=== PATIENT | male | born 1950 | race Caucasian/White ===

== ENCOUNTER → 2018-03-13 | Outpatient (CLI) | payer MEDICARE | END | disposition home or self-care (01) | LOC: ORTHO 00:58 | DX: M25.562 Pain in left knee (principal) ==

== ENCOUNTER → 2018-06-15 | Outpatient (CLI) | payer MEDICARE ==
[~2018-06-15] MED LIST: ALEVE220 MG PO; FUROSEMIDE40 MG PO; GLIPIZIDE10 M2 PO; GLUCOSAMINE CO1 EAC1 PO; LISINOPRIL10 M1 PO; MELOXICAM15 MG PO; METOPROLOL SUCC50 M1 PO; OPTIFLEX-C400 MG PO; SERTRALINE HYD100 MG PO; SIMVASTATIN20 MG PO; TERAZOSIN5 MG PO; TOPROL XL50 M1 PO; VITAMIN B COMP1 EAC1 PO; VITAMIN D31000 UNI1 PO
[2018-06-15 15:15] LABS: CHLORIDE 103 mmol/L (98-107); POTASSIUM 4.2 mmol/L (3.5-5.1); SODIUM 138 mmol/L (136-145)
[2018-06-15 15:19] LABS: BUN 18 mg/dl (7-24); CREATININE 0.99 mg/dL (0.70-1.30)
== END | disposition home or self-care (01) ==
LOC: LAB 13:58 → CT 15:00
PROVIDERS: Emergency Medicine
DX: M17.11 Unilateral primary osteoarthritis, right knee (principal); M25.461 Effusion, right knee; M25.761 Osteophyte, right knee; E11.65 Type 2 diabetes mellitus with hyperglycemia

== ENCOUNTER → 2018-07-28 | Outpatient (CLI) | payer MEDICARE ==
[~2018-07-28] MED LIST changes: +AMITRIPTYLINE H10 M1 PO; +AMLODIPINE BESY10 MG PO; +DOCUSATE SOD100 MG PO; +ECOTRIN325 M1 PO; +ENOXAPARIN30 MG/0.2 SC; +FLOMAX0.4 MG PO; +GOOD SENSE400 MG/5 M PO; +LISINOPRIL5 MG PO; +METFORMIN850 MG PO; +Percocet 325 MG1 TAB PO; +SENNOSIDES-DOC1 EACH PO; +TRAZODONE50 MG PO
--- NOTE | ~2018-07-28 | EKG ---
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
[2018-07-28 12:28] LABS: BASO % 0.4 % (0.0-1.0); EOS # 0.1 10*3/uL (0.0-0.4); EOS % 1.6 % (1.0-4.0); HEMATOCRIT 47.4 % (42.0-52.0); HEMOGLOBIN 14.7 g/dl (14.0-18.0); LYMPH # 1.8 10*3/uL (1.3-4.4); LYMPH % 26.5 % (27.0-41.0); MEAN CELL VOLUME 90.5 fl (80.0-94.0); MEAN CORPUSCULAR HGB 28.1 pg (27.0-31.0); MEAN PLATELET VOLUME 11.5 fl (9.6-12.3); MONO # 0.4 10*3/uL (0.1-1.0); NEUT # 4.4 10*3/uL (2.3-7.9); NEUT % 65.2 % (47.0-73.0); PLATELET COUNT AUTOMATED 213 10*3/uL (130-400); RED BLOOD COUNT 5.24 10*6/uL (4.50-5.90); RED CELL DISTRI WIDTH 13.7 % (0-14.5); WHITE BLOOD COUNT 6.8 10*3/uL (4.8-10.8)
[2018-07-28 12:36] LABS: BILIRUBIN NEGATIVE (NEGATIVE); BLOOD NEGATIVE (NEGATIVE); CLARITY CLEAR (CLEAR); COLOR YELLOW (YELLOW); GLUCOSE NEGATIVE (NEGATIVE); KETONE NEGATIVE (NEGATIVE); LEUKO ESTERASE NEGATIVE (NEGATIVE); NITRITE NEGATIVE (NEGATIVE); PH 5.5 (5.0-9.0); UROBILINOGEN 0.2 E.U./dl (0.2-1.0)
[2018-07-28 12:49] LABS: WBC 0-2 wbc/hpf (0-5)
[2018-07-28 12:54] LABS: BUN 13 mg/dl (7-24); CHLORIDE 105 mmol/L (98-107); POTASSIUM 4.5 mmol/L (3.5-5.1); SODIUM 139 mmol/L (136-145)
[2018-07-28 12:56] LABS: ALKALINE PHOSPHATASE 79 U/L (45-117); CREATININE 0.92 mg/dL (0.70-1.30); SGOT/AST 9 IU/L (3-35); SGPT/ALT 27 U/L (12-78); TOTAL PROTEIN 7.7 gm/dL (6.4-8.2)
== END | disposition home or self-care (01) ==
LOC: LAB 10:31
PROVIDERS: Orthopaedic Surgery
DX: I45.10 Unspecified right bundle-branch block (principal); M17.11 Unilateral primary osteoarthritis, right knee; I10 Essential (primary) hypertension; E11.9 Type 2 diabetes mellitus without complications; E78.00 Pure hypercholesterolemia, unspecified; D68.8 Other specified coagulation defects; E55.9 Vitamin D deficiency, unspecified; Z79.899 Other long term (current) drug therapy

== ENCOUNTER 2018-09-01 02:30 | Inpatient (IN) | payer MEDICARE ==
[~2018-09-01] VITALS: Ht 180.3 cm; Wt 121.1 kg
[2018-09-01] VITALS (10 sets, daily range): BP systolic 129–156; BP diastolic 63–83
[~2018-09-01 02:30] MED LIST changes: -AMITRIPTYLINE H10 M1 PO; -AMLODIPINE BESY10 MG PO; -DOCUSATE SOD100 MG PO; -ECOTRIN325 M1 PO; -ENOXAPARIN30 MG/0.2 SC; -FLOMAX0.4 MG PO; -GOOD SENSE400 MG/5 M PO; -LISINOPRIL5 MG PO; -METFORMIN850 MG PO; -Percocet 325 MG1 TAB PO; -SENNOSIDES-DOC1 EACH PO; -TRAZODONE50 MG PO
--- NOTE | 2018-09-01 12:05 | NUR ---
Time: 120 A 68 year old MALE admitted to under services of MEGAN ROBB DO, Pt. arrived via bed from OP/ADMIT. Chief complaint: RIGHT KNEE TOTAL. CARLEEN JAMES
--- NOTE | 2018-09-01 13:28 | NUR ---
Patient not able to participate in OT evaluation at this time as his RLE is still asleep after surgery. Mary Strauss OTR/L
--- NOTE | 2018-09-01 13:51 | NUR ---
CPM OFF PER PATIENT REQUEST. PT WORE FROM [phone]
--- NOTE | 2018-09-01 14:52 | NUR ---
Occupational Therapy evaluation completed on 5 with full eval to follow. Precautions include fall risk; linder,WBAT RLE, new ww use, moderate complexity level [id number] via chart review testing and evaluation. Recommend OT per POC and SNF to enable return home alone at indep level. Patient educated on R TKA precautions and position of right knee in bed. THank you. Mariola Strauss OTR/l
--- NOTE | 2018-09-01 15:28 | NUR ---
PHYSICAL THERAPY Patient evaluated on 5, full evaluation to follow. Continue with PT as per plan of care with fall, 02 , s/p R TKA WBAT and acute debility precautions. Will require SNF. PAtient is moderate complexity via chart review, tests and evaluation: 32652. Thank you for this referral. Maida Lawrence,PT
[2018-09-01] MEDS ORDERED: TRAZODONE50 MG PO (16:45)
[2018-09-01] MEDS ORDERED: METFORMIN850 MG PO (16:46)
[2018-09-01] MEDS ORDERED: FLOMAX0.4 MG PO (16:47)
[2018-09-01] MEDS ORDERED: AMITRIPTYLINE H10 M1 PO (16:49)
[2018-09-01] MEDS ORDERED: AMLODIPINE BESY10 MG PO (16:50)
--- NOTE | 2018-09-01 20:45 | NUR ---
24 HR chart check completed.
[2018-09-02] VITALS: BP 129/64
--- NOTE | 2018-09-02 | NUR ---
PT AWAKE IN BED. ASSESSMENT COMPLETED. STATED PAIN 2/10 IN RIGHT CALF. PT REFUSING CPM MACHINE AT THIS TIME. EDUCATION DONE. CALL LIGHT WITHIN REACH.
--- NOTE | 2018-09-02 00:01 | NUR ---
PT MEDICATED WITH SCHEDULED PAIN MEDICATION. PT STATED PAIN 2/10 IN RIGHT CALF.
--- NOTE | 2018-09-02 01:00 | NUR ---
PT DENIES PAIN AT THIS TIME. PAIN MEDICATION EFFECTIVE.
--- NOTE | 2018-09-02 02:28 | NUR ---
24 HOUR CHART CHECK COMPLETED.
--- NOTE | 2018-09-02 03:24 | NUR ---
PERCOCET GIVEN PER ORDER FOR PAIN RIGHT KNEE PAIN RATED "5-6". SEE MAR.
--- NOTE | 2018-09-02 03:56 | NUR ---
PT AWAKE IN BED. STATED PAIN IS "COMING DOWN" RATED PAIN A 4-5/10. CALL LIGHT WITHIN REACH.
--- NOTE | 2018-09-02 05:39 | NUR ---
PT MEDICATED WITH ROUTINE PAIN MEDICATION. PT STATED PAIN 2/10 IN RIGHT LEG AND A SLIGHT HEADACHE. SEE MAR.
[2018-09-02 06:19] LABS: BASO % 0.2 % (0.0-1.0); EOS % 0.3 % (1.0-4.0); HEMATOCRIT 35.7 % (42.0-52.0); HEMOGLOBIN 11.4 g/dl (14.0-18.0); LYMPH # 1.5 10*3/uL (1.3-4.4); LYMPH % 17.4 % (27.0-41.0); MEAN CELL VOLUME 89.7 fl (80.0-94.0); MEAN CORPUSCULAR HGB 28.6 pg (27.0-31.0); MEAN CORPUSCULAR HGB CONC 31.9 g/dl (33.0-37.0); MEAN PLATELET VOLUME 10.8 fl (9.6-12.3); MONO % 11.2 % (3.0-9.0); NEUT # 6.1 10*3/uL (2.3-7.9); NEUT % 70.6 % (47.0-73.0); PLATELET COUNT AUTOMATED 197 10*3/uL (130-400); RED BLOOD COUNT 3.98 10*6/uL (4.50-5.90); RED CELL DISTRI WIDTH 13.6 % (0-14.5); WHITE BLOOD COUNT 8.7 10*3/uL (4.8-10.8)
--- NOTE | 2018-09-02 06:30 | NUR ---
PT AWAKE IN BED. STATED HE IS SATISFIED WITH PAIN MEDICATION. CALL LIGHT WITHIN REACH.
[2018-09-02 06:55] LABS: ALBUMIN 3.2 gm/dl (3.1-4.5); ALKALINE PHOSPHATASE 60 U/L (45-117); BUN 15 mg/dl (7-24); CHLORIDE 103 mmol/L (98-107); CHOLESTEROL 67 mg/dL (<200); CREATININE 0.86 mg/dL (0.70-1.30); HDL CHOLESTEROL 30 mg/dl (40-60); LDL CHOLESTEROL 17 mg/dL (9-159); PHOSPHOROUS 2.9 mg/dL (2.5-4.9); POTASSIUM 4.2 mmol/L (3.5-5.1); SGOT/AST 8 IU/L (3-35); SGPT/ALT 18 U/L (12-78); SODIUM 137 mmol/L (136-145); TOTAL PROTEIN 6.1 gm/dL (6.4-8.2); TRIGLYCERIDES 101 mg/dl (<150); VLDL CHOLESTEROL 20 mg/dL (6-40)
[2018-09-02 07:00] LABS: THYROID STIM HORMONE (HS) 0.784 uIU/ml (0.358-4.75)
--- NOTE | 2018-09-02 07:30 | NUR ---
PHYSICAL THERAPY Patient seen this am 1:1 for therapy visit and was supine in bed upon therapist arrival. Patient reports 4/10 R anterior thigh pain and educated on use of overhead trapeze bar. Patient transfers supine to sit EOB with Min A, tolerating EOB sit CGA. Patient performed AAROM R LE marching, heel slides and Gastroc stretch, requiring v/c to complete with improved technique to improve ROM. Patient presents with R knee everett wrap and is WBAT on R LE for all standing activities. Patient completed several sit to stand transfers, Min A, demonstrating slow rise, needing v/c for proper hand placement to improve safe transfer. Patient ambulates with use of wh walker, CGA straight line gait and Min A during 180 turns, demonstrating unsteady posture, 40'x 1. Patient returned to EOB sit with mild fatigue and remained with call light, tray table and cell phone as breakfast arrived. Will continue per POC as tolerated, total treatment time 23 minutes. Samuel Zheng, PHARMACIST APPRENTICE
--- NOTE | 2018-09-02 07:55 | NUR ---
OT NOTE Pt was seen this A.M. 1:1 for 25 minute OT session. Upon arrival pt was supine in bed. Pt identified by name and and had complaints of 4/10 R anterior thigh pain. Pt transferred supine to sit EOB with Hasmukh for assist with RLE management and use of overhead trapeze bar. While sitting EOB educated and demonstrated use of sock aide and compliance spec. Pt verbalized understanding and then attempted. Pt doffed R sock with SBA using the compliance spec and then donned R sock with Hasmukh for proper sequencing of sock aide. Sit to stand completed from bed level with Hasmukh and use of w/w for UE support. Functional mobility then completed into the bathroom with CGA and use of w/w. Pt required min verbal prompts for proper step sequence for enhanced safety. There he transferred on to the standard commode with Hasmukh and use of grab bar for UE support. Clothing management completed with Hasmukh. Pt then transferred off standard commode with modA and use of grba bar. While rising about midway pt had LOB to the R that required maxA to correct. Educated pt on safe transfer technique for increased I and enhanced safety, pt retrialed sit to stand from commode and was able to complete with modA and no LOB. He then stood sink side while washing his hands with CGA. Pt required education for bringing the walker with him to the sink versus walking away without it. Pt then returned to the EOB where he was left sitting upright with call light in hand, tray table in place, and breakfast tray in place. Continue with rec D/C plan to SNF. CHANCE Jasmine
[2018-09-02 08:00] VITALS: BP 133/57
--- NOTE | 2018-09-02 09:15 | NUR ---
Patient requested referral to [facility], contacted facililty and faxed referral. Requires 3 night stay; waiting on review/acceptance.
--- NOTE | 2018-09-02 10:32 | NUR ---
PT GIVEN PO PERCOCET PER PRN ORDER FOR C/O KNEE PAIN. RATES PAIN /10. WILL MONITOR EFFECTIVENESS. CPM IN USE AT THIS TIME.
--- NOTE | 2018-09-02 11:07 | NUR ---
PATIENT OFF OF CPM PER REQUEST. PT WORE FOR 2 HOURS THIS AM. WILL CONTINUE TO MONITOR.
--- NOTE | 2018-09-02 11:30 | NUR ---
PAIN BEING RELIEVED PER PATIENT. WILL CONTINUE TO MONITOR.
[2018-09-02 12:00] VITALS: BP 139/69
--- NOTE | 2018-09-02 12:26 | NUR ---
Sports Equipment Racker in to talk to patient. Patient states lives at HOME with ALONE. There are SOME steps in the home. Physician: ROSIE Pharmacy: [facility] Home health services: NONE Patient's level of ADLs: INDEPENDENT Patient has working utilities: YES DME: NONE Follow-up physician's appointment after d/c: WILL BE MADE BY HOSPITALIST NURSE DIRECTOR ON DISCHARGE Does patient want to access PORTAL?: NO Discharge plan PT STATES HE LIVES AT HOME ALONE. PT HAD KNEE REPLACEMENT YESTERDAY. WANTS TO GO TO REHAB BEFORE GOING HOME. GAVE LIST OF LOCAL FACILITIES AND HE CHOSE TO GO [facility]. INFOMATION FAXED TO [facility] BY AUDIO VISUAL TECHNICIAN, WAITING FOR ACCEPTANCE. PT WILL REQUIRE A 3 NIGHT STAY BEFORE GOING. WILL CONTINUE TO FOLLOW.. CHERISE AMIN
--- NOTE | 2018-09-02 12:38 | NUR ---
IN TO SEE PATIENT.
--- NOTE | 2018-09-02 13:15 | NUR ---
PHYSICAL THERAPY Patient seen this pm 1:1 for therapy visit and was supine in bed upon therapist arrival. Patient transfers supine to sit EOB with use of overhead trapeze bar, CGA, demonstrating a little difficulty with R LE moement. Patient reports mild 2/10 pain prior to treatment then transfers sit to stand CGA with use of wh walker standing support. Patient also with contiuous IV treatment, ambulating with wh walker, CGA, 45'x 1, demonstrating "step to" gait pattern and returned to supine in bed with increased c/o R knee pain 7/10. Patient remained in bed with cold pack applied to R knee for pain / edema control, call light, tray table and telephone. Will continue per POC as tolerated, total treatment time 14 minutes. Samuel Zheng, SUPERVISOR CORE DRILLING
--- NOTE | 2018-09-02 13:30 | NUR ---
OT NOTE Pt was seen this P.M. 1:1 for second OT session consisting of 15 minutes. Upon arrival pt was supine in bed. Pt identified by name and and had complaints of 2/10 R knee pain. Pt transferred supine to sit EOB with CGA and use of overhead trapeze bar. While sitting EOB pt donned R sock using sock aid with SBA. Functional mobility completed into the bathroom with CGA and use of w/w for UE support. There he transferred on to standard commode with Hasmukh due to poor safety alignment. Clothing management completed with Hasmukh. Pt then transferred off standard commode with Hasmukh and poor safety awareness while pulling from the walker. Pt then returned to the EOB where he transferred sit to supine with CGA. Pt was left supine in bed with call light in hand, tray table in place, and bed alarm activated for safety. Continue with rec D/C plan to SNF. MARY Jasmine/Brian
--- NOTE | 2018-09-02 14:35 | NUR ---
NOTIFIED REGARDING [facility] TO BE D/C'D POD #2.
--- NOTE | 2018-09-02 15:28 | NUR ---
CALLED INTO PATIENT'S ROOM. PATIENT STATES HE FEELS LIKE HIS CATHETER IS COMING OUT. PT REQUESTING [facility] TO BE TAKEN OUT. [facility] D/C'D AT THIS TIME. WILL MONITOR OUTPUT.
--- NOTE | 2018-09-02 15:41 | NUR ---
PT MEDICATED WITH PO PERCOCET PER PRN ODER FOR C/O LEFT KNEE PAIN. WILL MONITOR EFFECTIVENESS.
[2018-09-02 16:00] VITALS: BP 133/56
--- NOTE | 2018-09-02 19:57 | NUR ---
PT AWAKE IN BED. JUST AMBULATED BACK TO BED FROM RESTROOM. NO BM AT THIS TIME. PT STATED HE HAS NOT VOIDED SINCE [facility] CATHETER TAKEN OUT. BLADDER NOT DISTENDED. PT STATED HE DOES NOT FEEL NEED TO VOID AT THIS TIME. STATED PAIN IN RIGHT LEG 06/11. ASSESSMENT COMPLETED. CALL LIGHT WITHIN REACH.
[2018-09-02 20:00] VITALS: BP 138/53
--- NOTE | 2018-09-02 22:15 | NUR ---
PT MEDICATED WITH PRN PO PAIN MEDICATION. STATED PAIN 1/10 IN RIGHT CALF BUT DOES NOT WANT PAIN TO GET UNBEARABLE. SEE MAR.
--- NOTE | 2018-09-02 23:00 | NUR ---
PT SATISFIED WIHT PO PRN PAIN MEDICATION.
--- NOTE | 2018-09-02 23:00 | NUR ---
PRN SLEEP AID ADMINISTERED. SEE MAR.
[2018-09-03] VITALS: BP 146/66
--- NOTE | 2018-09-03 02:01 | NUR ---
PT MEDICATED WITH PRN PO PAIN MEDICATION FOR PAIN 6/10 IN RIGHT CALF. SEE MAR.
--- NOTE | 2018-09-03 02:36 | NUR ---
24H CHART CHECK COMPLETED
[2018-09-03 06:32] LABS: BASO % 0.3 % (0.0-1.0); EOS # 0.1 10*3/uL (0.0-0.4); EOS % 1.2 % (1.0-4.0); HEMATOCRIT 34.1 % (42.0-52.0); HEMOGLOBIN 10.8 g/dl (14.0-18.0); LYMPH # 1.6 10*3/uL (1.3-4.4); LYMPH % 21.7 % (27.0-41.0); MEAN CELL VOLUME 87.9 fl (80.0-94.0); MEAN CORPUSCULAR HGB 27.8 pg (27.0-31.0); MEAN CORPUSCULAR HGB CONC 31.7 g/dl (33.0-37.0); MEAN PLATELET VOLUME 11.2 fl (9.6-12.3); MONO # 0.9 10*3/uL (0.1-1.0); MONO % 11.4 % (3.0-9.0); NEUT # 4.9 10*3/uL (2.3-7.9); PLATELET COUNT AUTOMATED 175 10*3/uL (130-400); RED BLOOD COUNT 3.88 10*6/uL (4.50-5.90); RED CELL DISTRI WIDTH 13.6 % (0-14.5); WHITE BLOOD COUNT 7.6 10*3/uL (4.8-10.8)
[2018-09-03 08:00] VITALS: BP 164/84
--- NOTE | 2018-09-03 08:08 | NUR ---
PT REQUESTED AND RECEIVED IV DILAUDID SLOWLY PER PRN ORDER FOR C/O RIGHT KNEE PAIN. RATES PAIN 8/. WILL MONITOR EFFECTIVENESS. PT VOIDING WITHOUT ANY PROBLEM. WILL CONTINUE TO MONITOR. CALL LIGHT WITHIN REACH.
--- NOTE | 2018-09-03 08:10 | NUR ---
Patient has been accepted to [facility], hospital exemption completed. Requires a 3 night stay. Ok to go Friday09/04/18 if medically stable for discharge.
--- NOTE | 2018-09-03 08:40 | NUR ---
OT NOTE Pt was seen this A.M. 1:1 for 15 minute OT session. Upon arrival pt was supine in bed. Pt identified by name and and had complaints of 0/10 pain at rest. Pt presented to therapy with reports of just recieving pain medicine resulting in pt being very "loopy" limiting activity due to safety concerns. Pt transferred supine to sit EOB with Hasmukh and use of overhead trapeze bar. Pt then completed multiple sit to stand transfers from bed level with Hasmukh and use of w/w for UE support. Challenged pt's static standing tolerance needed for increased I in self care tasks and functional transfers. Pt was able to tolerate aprox 3 minutes at a time before sitting due to fatigue and pain in R knee. With activity pt reported pain as a 3/10 in the R knee. No other activitied completed at this time due to pt being unable to keep his eyes open. Pt transferred back into bed sit to supine with SBA. There he was left with call light in hand, tray table in place, and bed alarm activated for safety. Continue with rec D/C plan to SNF. MARY Jasmine/Brian
--- NOTE | 2018-09-03 10:46 | NUR ---
PHYSICAL THERAPY Patient seen this am 1:1 for threrapy visit and was supine in bed upon therapist arrival. Patient stated he had received a pain IV drip this morning and feels a little "loopy". Patient reports no c/o's pain and received copy of supine / seated HEP to be performed this pm during second daily visit. Patient transfers supine to sit EOB with Min A while using overhead trapeze bar, demonstrating increased difficulty moving R LE. Patient performed several sit to stand transfers Min/CGA, use of wh walker standing support and was able to tolerate B weight shifting x 3 minutes with CGA. Patient unable to attempt gait due to cognitive effect of pain med and returned to supine in bed with Min A x 1. Patient remained in bed with call light, tray table, cell phone and bed alarm activated for safety. Will continue per POC as tolerated, total treatment time 16 minutes. Samuel Zheng, SOFT TOP INSTALLER
--- NOTE | 2018-09-03 10:56 | NUR ---
PT MEDICATED WITH PO PERCOCET PER PRN ORDER FOR C/O KNEE PAIN. RATES PAIN 5/10. WILL MONITOR EFFECTIVENESS.
[2018-09-03 12:00] VITALS: BP 154/73
--- NOTE | 2018-09-03 13:20 | NUR ---
PHYSICAL THERAPY Patient seen this pm 1:1 for therapy visit and was in the bathroom upon therapist arrival. Patient voices mild 2/10 R knee pain and is WBAT with use of wh walker, ambulating 50'x 2, CGA. Patient demonstrates "step to" gait pattern, slow papi and needed v/c for head up posture. Patient also remains unsteady during 180 turns due to increased velocity and returned to EOB sit. Patient reviewed HEP handout and performed each ex x 10 reps each, demonstrating increased difficulty with R side marching and LAQ due to increased edema / muscle weakness. Patient remained seated EOB as OT tax accounting assistant arrived. Will continue per POC as tolerated, total treatment time 23 minutes. Samuel Zheng, HEBREW TEACHER
--- NOTE | 2018-09-03 13:45 | NUR ---
OT NOTE Pt was seen this P.M. 1:1 for second OT session consisting of 15 minutes. Upon arrival pt was sitting upright on the standard commode. Pt identified by name and and had complaints of 2/10 R knee pain. Pt completed toilet hygiene with distant supervision while seated. Sit to stand completed from standard commode with CGA for safety. Pt then stood sink side while washing his hands with CGA, pt required one verbal prompt to widen his base of support for enhanced safety. Pt then returned to the EOB. While sitting EOB pt doffed R sock with SBA and use of supervisor cellars. Educated and demonstrated use of long handle sponge for LB bathing and pt performed. Pt washed his R foot using the long handled sponge with SBA and used the supervisor cellars with a towel to dry. Pt then donned sock again using sock aid with SBA. Pt was left sitting upright on the EOB with call light in hand, tray table in place, and phone in reach. Continue with rec D/C plan to SNF. MARY Jasmine/Brian
--- NOTE | 2018-09-03 15:07 | NUR ---
IN TO SEE PATIENT REGARDING DRESSING CHANGE.
--- NOTE | 2018-09-03 15:25 | NUR ---
PT MEDICATED WITH PO PERCOCET PER PRN ORDER FOR C/O KNEE PAIN. DRESSING CHANGED TO RIGHT KNEE PER . WILL CONTINUE TO MONITOR.
[2018-09-03 16:00] VITALS: BP 158/74
--- NOTE | 2018-09-03 16:57 | NUR ---
PAIN BEING RELIEVED PER PT. WILL CONTINUE TO MONITOR.
--- NOTE | 2018-09-03 19:49 | NUR ---
PT AWAKE IN BED. ASSESSMENT COMPLETED. STATED PAIN 1/10 IN RIGHT KNEE. CALL LIGHT WITHIN REACH.
[2018-09-03 20:00] VITALS: BP 156/75
--- NOTE | 2018-09-03 20:07 | NUR ---
PT HAD LARGE BM.
--- NOTE | 2018-09-03 21:30 | NUR ---
PT REFUSING INSULIN. STATED HE DOES NOT TAKE INSULIN AT HOME. EDUCATION GIVEN BUT PT STILL REFUSING. BS [id number]
--- NOTE | 2018-09-03 21:57 | NUR ---
PT MEDICATED WITH ZOFRAN FOR COMPLAINT OF NAUSEA.
--- NOTE | 2018-09-03 22:17 | NUR ---
ZOFRAN EFFECTIVE PER PATIENT.
--- NOTE | 2018-09-03 22:26 | NUR ---
PT MEDICATED WITH IV PAIN MEDICATION FOR PAIN 7/10 IN RIGHT KNEE. SEE JUL.
[2018-09-04] VITALS: BP 123/63
--- NOTE | 2018-09-04 04:55 | NUR ---
PT ASLEEP IN BED. NO S/S OF DISTRESS. CALL LIGHT WITHIN REACH.
--- NOTE | 2018-09-04 05:33 | NUR ---
24H CHART CHECK COMPLETED
--- NOTE | 2018-09-04 06:21 | NUR ---
PT MEDICATED WITH PO PAIN MEDICATION. PAIN 4/10 IN RIGHT KNEE. SEE MAR
[2018-09-04 06:47] LABS: BASO % 0.4 % (0.0-1.0); EOS # 0.1 10*3/uL (0.0-0.4); EOS % 1.9 % (1.0-4.0); HEMATOCRIT 36.5 % (42.0-52.0); HEMOGLOBIN 11.4 g/dl (14.0-18.0); LYMPH # 2.2 10*3/uL (1.3-4.4); LYMPH % 28.6 % (27.0-41.0); MEAN CELL VOLUME 90.1 fl (80.0-94.0); MEAN CORPUSCULAR HGB 28.1 pg (27.0-31.0); MEAN CORPUSCULAR HGB CONC 31.2 g/dl (33.0-37.0); MEAN PLATELET VOLUME 11.4 fl (9.6-12.3); MONO # 0.8 10*3/uL (0.1-1.0); MONO % 10.1 % (3.0-9.0); NEUT # 4.4 10*3/uL (2.3-7.9); NEUT % 58.6 % (47.0-73.0); PLATELET COUNT AUTOMATED 219 10*3/uL (130-400); RED BLOOD COUNT 4.05 10*6/uL (4.50-5.90); RED CELL DISTRI WIDTH 13.7 % (0-14.5); WHITE BLOOD COUNT 7.5 10*3/uL (4.8-10.8)
[2018-09-04 08:00] VITALS: BP 131/56
--- NOTE | 2018-09-04 09:02 | NUR ---
MOHINI faxed over and update of notes to Krissy at [facility]. JL Sequeira NETWORK SERVICES PROJECT MANAGER,CHEMICAL PROCESS EQUIPMENT OPERATOR
--- NOTE | 2018-09-04 09:23 | NUR ---
OT NOTE Pt was seen this A.M. 1:1 for 23 minute OT session. Upon arrival pt was supine in bed. Pt identified by name and and had complaints of 4/10 R knee pain. Pt transferred supine to sit EOB with SBA and use of overhead trapeze bar. While sitting EOB pt completed LB bathing and dressing using long handled sponge, sock aid, and staff certified nurse midwife with SBA after set-up. Functional mobility completed to the bathroom and back with CGA and use of w/w for UE support. Pt returned to the EOB where he was left sitting upright with call light in hand, tray table in place, and phone in reach. Continue with rec D/C plan to SNF. MARY Jasmine/Brian
--- NOTE | 2018-09-04 09:30 | NUR ---
PHYSICAL THERAPY Patient seen this am 1;1 for therapy visit and was supine in bed upon therapist arrival. Patient reports 4/10 R knee pain and presented with only R knee sterile gauze strip covering surgical site. Patient states he is glad to not have as much pressure in his R leg and transfers supine to stand CGA. Patient now able to complete supine to sit EOB without use of overhead trapeze bar and ambulates with use of wh walker, CGA, 50'x 2, demonstrating slow, antalgic gait pattern. Patient Fair balance during all 90/180 turns and still requires a v/c to improve safety with walker navigation while turning. Patient returned to EOB sit and completed several ex including L heel slides, marching, quad/glute sets x 10 reps each with good understanding of each ex. Patient measured seated L knee flexion 68 degrees AROM and 75 AAROM while remaining EOB sit following all treatment with call light, and telephone. Will continue per POC as tolerated, total treatment time 23 minutes. Samuel Zheng, HOSPITAL ORDERLY
--- NOTE | 2018-09-04 11:10 | NUR ---
Dr. Ha's office staff called regarding what pt measurement was for CPM. I notified her that pt had been refusing it for the past 2 days and I was not sure. She asked that I call back with information. I notified her that we just had a new pt arrive from ER and it would be after admission process that I would call.
--- NOTE | 2018-09-04 11:40 | NUR ---
PHYSICAL THERAPY Message form case managment regaurding current CPM and ROM of knee for d/c instructions for usp CPM for Dr. Ha. Nursing completes CPM 2 hours every shift at this facility. Spoke with marbin RN: CPM 0-40 due to patient being non complaint and refusing past 2 days. Educated RN to please try to increase to 50. PT ROM 65-68 with treatment. Spoke with Ban at Dr. Gonzáles office to inform of the above readings. SPoke with case management to relay the same. Maida Lawrence,PT
--- NOTE | 2018-09-04 11:45 | NUR ---
Applied CPM currently at 40 degrees. I asked pt why he had been refusing and pt states that it pinches him and he doesn't like wearing it for that reason. While placing CPM Maida from therapy here and states that Dr. Ha's office called and wanted to know what settings are. I notified her that I was applying it now as pt agreed to wear it today but he has refused to wear for the past 2 days. I asked Maida if I should turn up degrees by 10 per order and she states not if pt has not worn it for 2 days. Currently at 40 will turn up by 10 if pt tolerates. Maida states she will speak with Dr. Has office and notify them.
[2018-09-04] MEDS ORDERED: SENNOSIDES-DOC1 EACH PO (12:21)
[2018-09-04] MEDS ORDERED: GOOD SENSE400 MG/5 M PO (12:21)
[2018-09-04] MEDS ORDERED: ENOXAPARIN30 MG/0.2 SC (12:21)
[2018-09-04] MEDS ORDERED: DOCUSATE SOD100 MG PO (12:21)
[2018-09-04] MEDS ORDERED: LISINOPRIL5 MG PO (12:21)
[2018-09-04] MEDS ORDERED: ECOTRIN325 M1 PO (12:21)
[2018-09-04] MEDS ORDERED: Percocet 325 MG1 TAB PO (12:21)
--- NOTE | 2018-09-04 12:41 | NUR ---
OT NOTE Attempted to see pt this P.M. for second OT session and upon arrival pt was supine in bed with CPM on. Will continue with POC as able. MARY Jasmine/Brian
--- NOTE | 2018-09-04 12:50 | NUR ---
SW spoke with revolving inventory clerk who stated 3:00 PM would be good for a milk pickup driver to take pt to [facility]. JL Sequeira MSW,PODIATRIC ASSISTANT
--- NOTE | 2018-09-04 12:51 | NUR ---
SW spoke with [facility] for a 3:00PM for pt in room 516-1 to be taken to [facility]. Pt is a total knee replacement and going for rehab. No other issues for this pt. JL Sequeira MSW,BASIC SCIENCES DEAN
--- NOTE | 2018-09-04 12:56 | NUR ---
MOHINI called blood bank booking clerk back to tell her that [facility] would be here at 3:00PM for transportation to [facility] for room 516-1. JL BERKOWITZ, CARL
--- NOTE | 2018-09-04 12:59 | NUR ---
MOHINI called [facility] and left a message that pt would be transported at 3:00PM to [facility], JL Sequeira MSW,HUMAN RESOURCES CLERK
--- NOTE | 2018-09-04 13:38 | NUR ---
PT BEING DISCHARGED TO [facility] TODAY.
--- NOTE | 2018-09-04 14:05 | NUR ---
PHYSICAL THERAPY CO-SIGN I approve of the Phyical Therapy notes written above. COLTEN VILLASENOR PT
--- NOTE | 2018-09-04 15:05 | NUR ---
PT DISCHARGED VIA [facility]
== END 2018-09-04 15:05 | disposition other institution (70) | DRG 470 ==
LOC: SDC 02:30 → 5E 07:54 → SDC 10:15 → 5E 09-04 15:05
PROVIDERS: Orthopaedic Surgery; Student in an Organized Health Care Education/Training Program; ADMIT Internal Medicine
PROC: 0SRC0J9 Replacement of Right Knee Joint with Synthetic Substitute, Cemented, Open Approach (ICD-10-PCS; principal; 2018-09-01)
DX: M17.11 Unilateral primary osteoarthritis, right knee (principal); D62 Acute posthemorrhagic anemia; E44.1 Mild protein-calorie malnutrition; E83.41 Hypermagnesemia; I10 Essential (primary) hypertension; E11.9 Type 2 diabetes mellitus without complications; F32.9 Major depressive disorder, single episode, unspecified; E78.5 Hyperlipidemia, unspecified; N40.0 Benign prostatic hyperplasia without lower urinary tract symptoms; Z79.84 Long term (current) use of oral hypoglycemic drugs; Z82.49 Family history of ischemic heart disease and other diseases of the circulatory system; Z68.37 Body mass index [BMI] 37.0-37.9, adult

== ENCOUNTER → 2018-10-12 | Outpatient (CLI) | payer MEDICARE ==
[~2018-10-12] MED LIST changes: +AMITRIPTYLINE H10 M1 PO; +AMLODIPINE BESY10 MG PO; +DOCUSATE SOD100 MG PO; +ECOTRIN325 M1 PO; +ENOXAPARIN30 MG/0.2 SC; +FLOMAX0.4 MG PO; +GOOD SENSE400 MG/5 M PO; +LISINOPRIL5 MG PO; +METFORMIN850 MG PO; +Percocet 325 MG1 TAB PO; +SENNOSIDES-DOC1 EACH PO; +TRAZODONE50 MG PO
== END | disposition home or self-care (01) ==
LOC: ORTHO 01:37
DX: Z96.651 Presence of right artificial knee joint (principal)

== ENCOUNTER → 2019-03-15 | Outpatient (CLI) | payer MEDICARE, OTHER | END | disposition home or self-care (01) | LOC: ORTHO 00:50 | DX: M25.561 Pain in right knee (principal); Z96.651 Presence of right artificial knee joint ==

== ENCOUNTER 2021-01-01 15:42 | Emergency (ER) | payer MEDICARE, OTHER ==
[~2021-01-01] VITALS: Ht 180 cm; Wt 117.0 kg
[2021-01-01] MEDS ORDERED: CEPHALEXIN500 M1 PO (16:48)
== END 2021-01-01 18:17 | disposition home or self-care (01) ==
LOC: ED 15:42
DX: S62.634A Displaced fracture of distal phalanx of right ring finger, initial encounter for closed fracture (principal); E11.9 Type 2 diabetes mellitus without complications; Z79.899 Other long term (current) drug therapy; Z79.82 Long term (current) use of aspirin; Z98.890 Other specified postprocedural states; W23.0XXA Caught, crushed, jammed, or pinched between moving objects, initial encounter; Y93.89 Activity, other specified; Y92.89 Other specified places as the place of occurrence of the external cause; Y99.8 Other external cause status

== ENCOUNTER 2023-08-09 20:33 | Emergency (ER) | payer MEDICARE, OTHER ==
[~2023-08-09] VITALS: Ht 180.3 cm; Wt 106.6 kg
[~2023-08-09 20:33] MED LIST changes: +CEPHALEXIN500 M1 PO
[2023-08-09] MEDS ORDERED: Lidocaine Hydrochloride 2 ML AMP SC ONE (20:50)
[2023-08-09] MEDS ORDERED: ceFAZolin sodium 1 GM VIAL IM ONE (21:30)
[2023-08-09] MEDS ORDERED: CEPHALEXIN500 M1 PO (22:12)
[2023-08-09] MEDS ORDERED: Water, Sterile 10 ML VIAL ONE (22:31)
== END 2023-08-09 22:38 | disposition home or self-care (01) ==
LOC: ED 20:33
DX: S62.611B Displaced fracture of proximal phalanx of left index finger, initial encounter for open fracture (principal); S62.651B Nondisplaced fracture of middle phalanx of left index finger, initial encounter for open fracture; I48.91 Unspecified atrial fibrillation; Z79.2 Long term (current) use of antibiotics; Z79.899 Other long term (current) drug therapy; Z79.82 Long term (current) use of aspirin; Z98.890 Other specified postprocedural states; Z96.659 Presence of unspecified artificial knee joint; W27.0XXA Contact with workbench tool, initial encounter; Y93.89 Activity, other specified; Y92.098 Other place in other non-institutional residence as the place of occurrence of the external cause; Y99.8 Other external cause status

== ENCOUNTER → 2023-09-24 | Outpatient (CLI) | payer MEDICARE, OTHER ==
[2023-09-24 16:43] LABS: BASO % 0.4 % (0.0-1.0); EOS # 0.3 10*3/uL (0.0-0.4); EOS % 3.4 % (1.0-4.0); HEMATOCRIT 40.4 % (42.0-52.0); LYMPH # 2.2 10*3/uL (1.3-4.4); LYMPH % 25.1 % (27.0-41.0); MEAN CELL VOLUME 87.8 fl (80.0-94.0); MEAN CORPUSCULAR HGB 27.2 pg (27.0-31.0); MEAN CORPUSCULAR HGB CONC 30.9 g/dl (33.0-37.0); MEAN PLATELET VOLUME 10.1 fl (9.6-12.3); MONO # 0.7 10*3/uL (0.1-1.0); MONO % 7.6 % (3.0-9.0); NEUT # 5.6 10*3/uL (2.3-7.9); NEUT % 63.1 % (47.0-73.0); PLATELET COUNT AUTOMATED 238 10*3/uL (130-400); RED CELL DISTRI WIDTH 14.2 % (0-14.5); WHITE BLOOD COUNT 8.9 10*3/uL (4.8-10.8)
[2023-09-24 17:01] LABS: POTASSIUM 4.4 mmol/L (3.4-5.1)
== END | disposition home or self-care (01) ==
LOC: LAB 16:24
PROVIDERS: ATTEND Student in an Organized Health Care Education/Training Program
DX: I48.91 Unspecified atrial fibrillation (principal); N18.32 Chronic kidney disease, stage 3b

== ENCOUNTER 2024-10-11 18:29 | Emergency (ER) | payer MEDICARE ==
[~2024-10-11] VITALS: Ht 180.3 cm; Wt 120.2 kg
[2024-10-11 18:57] LABS: BASO % 0.3 % (0.0-1.0); EOS # 0.2 10*3/uL (0.0-0.4); EOS % 2.6 % (1.0-4.0); HEMATOCRIT 37.5 % (42.0-52.0); MEAN CORPUSCULAR HGB 27.7 pg (27.0-31.0); MEAN CORPUSCULAR HGB CONC 31.5 g/dl (33.0-37.0); MEAN PLATELET VOLUME 10.5 fl (9.6-12.3); MONO # 0.4 10*3/uL (0.1-1.0); MONO % 5.6 % (3.0-9.0); NEUT # 4.6 10*3/uL (2.3-7.9); NEUT % 63.4 % (47.0-73.0); PLATELET COUNT AUTOMATED 151 10*3/uL (130-400); RED BLOOD COUNT 4.26 10*6/uL (4.50-5.90); RED CELL DISTRI WIDTH 15.7 % (0-14.5); WHITE BLOOD COUNT 7.3 10*3/uL (4.8-10.8)
[2024-10-11 19:11] LABS: ACT PARTIAL THROMBO TIME 26.3 SECONDS (20.0-32.1)
[2024-10-11 19:18] LABS: POTASSIUM 4.7 mmol/L (3.4-5.1); TOTAL PROTEIN 6.6 gm/dL (6.0-8.0)
[2024-10-11] MEDS ORDERED: Ondansetron Hydrochloride 4 MG/2 ML VIAL IV ONE (19:45)
[2024-10-11] MEDS ORDERED: HYDROmorphone Hydrochloride 1 MG/ML SYR IV ONE (19:45)
== END 2024-10-11 21:02 | disposition short-term general hospital (02) ==
LOC: ED 18:29
PROVIDERS: Internal Medicine
DX: S72.401A Unspecified fracture of lower end of right femur, initial encounter for closed fracture (principal); D64.9 Anemia, unspecified; N18.9 Chronic kidney disease, unspecified; N17.9 Acute kidney failure, unspecified; Z96.651 Presence of right artificial knee joint; Z79.82 Long term (current) use of aspirin; Z79.899 Other long term (current) drug therapy; Z79.84 Long term (current) use of oral hypoglycemic drugs; V89.9XXA Person injured in unspecified vehicle accident, initial encounter; Y93.89 Activity, other specified; Y92.89 Other specified places as the place of occurrence of the external cause; Y99.8 Other external cause status